=== PATIENT | male | born 1980 | race American Indian/Alaskan Native ===

== ENCOUNTER 2017-06-19 23:23 | Emergency (ER) | payer SELFPAY ==
[2017-06-20 00:11] VITALS: BP 147/99
== END 2017-06-20 02:33 | disposition left against medical advice (07) ==
LOC: ED 23:23
DX: K08.89 Other specified disorders of teeth and supporting structures (principal); Z53.21 Procedure and treatment not carried out due to patient leaving prior to being seen by health care provider